=== PATIENT | female | born 1975 | race Caucasian/White ===

== ENCOUNTER → 2016-05-09 | Outpatient (CLI) | payer OTHER ==
[~2016-05-09] MED LIST: ALBUTEROL0.09 MG/A1 INH; AMITIZA8 MCG PO; BACTRIM DS 8001 TA1 PO; BUPROPION HCL150 M1 PO; BUSPIRONE30 MG PO; CIPRO250 MG PO; CLONIDINE0.2 MG PO; CYTOMEL0.005 MG PO; DEXILANT60 M1 PO; DOXEPIN HCL10 MG PO; EPIPEN 2-PAK1 MG/ML SC; GEODON20 MG PO; GEODON40 MG PO; HYDROCODONE BIT1 T11 PO; KRISTALOSE10 GM/PACK PO; LIPITOR10 MG PO; LOPRESSOR25 MG PO; MEDROL DOSEPAK4 MG PO; MELOXICAM15 MG PO; NEURONTIN400 MG PO; NORCO 5-325 TA1 EACH PO; PAXIL30 M2 PO; PAXIL40 M1 PO; PROTONIX40 MG PO; PYRIDIUM200 M1 PO; REQUIP2 M2 PO; SINGULAIR10 M1 PO; SYNTHROID RP0.1 MG PO; TESSALON PERLE100 MG PO; TOPAMAX100 M1 PO; TOPAMAX50 MG PO; ULTRAM50 MG PO; VALIUM10 MG PO; VISTARIL25 M2 PO; VITAMIN D50000 I3 PO; VOLTAREN50 M1 PO; Wellbutrin Sr100 MG PO; ZANAFLEX4 MG PO; ZIPRASIDONE HCL60 M1 PO; ZITHROMAX250 MG PO; ZOFRAN4 MG PO
== END | disposition home or self-care (01) ==
LOC: US 15:46
DX: R10.2 Pelvic and perineal pain (principal)

== ENCOUNTER 2016-06-18 21:36 | Emergency (ER) | payer OTHER ==
[~2016-06-18] VITALS: Ht 157.4 cm; Wt 100.7 kg
[2016-06-18 22:00] VITALS: BP 160/105
[2016-06-18] MEDS ORDERED: MEDROL DOSEPAK4 MG PO (22:17)
== END 2016-06-18 22:25 | disposition home or self-care (01) ==
LOC: ED 21:36
DX: L24.89 Irritant contact dermatitis due to other agents (principal); F17.200 Nicotine dependence, unspecified, uncomplicated; Z91.030 Bee allergy status; Z88.8 Allergy status to other drugs, medicaments and biological substances; Z91.041 Radiographic dye allergy status; X32.XXXA Exposure to sunlight, initial encounter; Y93.89 Activity, other specified; Y92.9 Unspecified place or not applicable; Y99.9 Unspecified external cause status

== ENCOUNTER → 2016-07-21 | Outpatient (CLI) | payer OTHER ==
[2016-07-21 12:20] LABS: BILIRUBIN NEGATIVE (NEGATIVE); BLOOD NEGATIVE (NEGATIVE); CLARITY CLEAR (CLEAR); COLOR YELLOW (YELLOW); GLUCOSE NEGATIVE (NEGATIVE); KETONE NEGATIVE (NEGATIVE); LEUKO ESTERASE NEGATIVE (NEGATIVE); NITRITE NEGATIVE (NEGATIVE); PROTEIN NEGATIVE (NEGATIVE); SPECIFIC GRAVITY <= 1.005 (1.005-1.030); UROBILINOGEN 0.2 E.U./dl (0.2-1.0)
[2016-07-21 12:51] LABS: ALBUMIN 3.9 gm/dl (3.1-4.5); BUN 12 mg/dl (7-24); CARBON DIOXIDE 27 mmol/L (21-32); CHLORIDE 104 mmol/L (98-107); CHOLESTEROL 183 mg/dL (<200); GLUCOSE 109 mg/dL (65-99); POTASSIUM 4.1 mmol/L (3.5-5.1); SODIUM 139 mmol/L (136-145)
[2016-07-21 12:59] LABS: ALKALINE PHOSPHATASE 94 U/L (45-117); BILIRUBIN, DIRECT < 0.1 mg/dL (0.0-0.2); BILIRUBIN, TOTAL 0.3 mg/dl (0.2-1.0); EST GLOM FILT AFRICAN AMERICAN > 60 ml/min; FREE T4 1.22 ng/dl (0.76-1.46); HDL CHOLESTEROL 22 mg/dl (40-60); SGOT/AST 13 IU/L (3-35); SGPT/ALT 25 U/L (12-78); TOTAL PROTEIN 7.3 gm/dL (6.4-8.2); TRIGLYCERIDES 601 mg/dl (<150)
[2016-07-21 13:00] LABS: THYROID STIM HORMONE (HS) 0.773 uIU/ml (0.358-4.75)
== END | disposition home or self-care (01) ==
LOC: LAB 11:38
PROVIDERS: Internal Medicine
DX: E03.9 Hypothyroidism, unspecified (principal); E78.5 Hyperlipidemia, unspecified; R73.02 Impaired glucose tolerance (oral); E55.9 Vitamin D deficiency, unspecified

== ENCOUNTER → 2016-09-05 | Outpatient (CLI) | payer OTHER | END | disposition home or self-care (01) | LOC: LAB 11:45 | DX: M54.5 Low back pain (principal) ==

== ENCOUNTER → 2016-09-11 | Outpatient (CLI) | payer OTHER | END | disposition home or self-care (01) | LOC: LAB 11:13 | DX: R53.83 Other fatigue (principal) ==

== ENCOUNTER → 2016-10-28 | Outpatient (CLI) | payer OTHER ==
[2016-10-28 12:01] LABS: ALBUMIN 3.9 gm/dl (3.1-4.5)
[2016-10-28 12:12] LABS: BILIRUBIN, DIRECT 0.1 mg/dL (0.0-0.2); FREE T4 1.12 ng/dl (0.76-1.46); THYROID STIM HORMONE (HS) 2.65 uIU/ml (0.358-4.75); TOTAL PROTEIN 7.7 gm/dL (6.4-8.2)
[2016-10-28 13:46] LABS: VITAMIN D, 25-HYDROXY 39.9 ng/mL (30-100)
== END | disposition home or self-care (01) ==
LOC: LAB 11:06
PROVIDERS: Internal Medicine
DX: E78.5 Hyperlipidemia, unspecified (principal); E03.9 Hypothyroidism, unspecified; E55.9 Vitamin D deficiency, unspecified; G62.9 Polyneuropathy, unspecified; R73.02 Impaired glucose tolerance (oral)

== ENCOUNTER → 2016-11-14 | Outpatient (CLI) | payer OTHER | END | disposition home or self-care (01) | LOC: MRI 10:00 | DX: M54.5 Low back pain (principal) ==

== ENCOUNTER 2016-12-16 23:06 | Emergency (ER) | payer OTHER ==
[~2016-12-16] VITALS: Ht 157.4 cm; Wt 100.7 kg
[2016-12-16 23:14] VITALS: BP 161/87
[2016-12-16] MEDS ORDERED: NAPROSYN500 MG PO (23:25)
== END 2016-12-16 23:31 | disposition home or self-care (01) ==
LOC: ED 23:06
DX: S70.01XA Contusion of right hip, initial encounter (principal); F17.200 Nicotine dependence, unspecified, uncomplicated; Z91.041 Radiographic dye allergy status; Z91.030 Bee allergy status; Z79.899 Other long term (current) drug therapy; V59.9XXA Occupant (driver) (passenger) of pick-up truck or van injured in unspecified traffic accident, initial encounter; Y93.89 Activity, other specified; Y92.89 Other specified places as the place of occurrence of the external cause; Y99.8 Other external cause status

== ENCOUNTER → 2017-02-02 | Outpatient (CLI) | payer OTHER ==
[~2017-02-02] MED LIST changes: +NAPROSYN500 MG PO
[2017-02-02 08:55] LABS: ALBUMIN 3.3 gm/dl (3.1-4.5); ALKALINE PHOSPHATASE 85 U/L (45-117); BILIRUBIN, DIRECT < 0.1 mg/dL (0.0-0.2); CHOLESTEROL 135 mg/dL (<200); HDL CHOLESTEROL 28 mg/dl (40-60); LDL CHOLESTEROL 47 mg/dL (9-159); SGOT/AST 11 IU/L (3-35); SGPT/ALT 21 U/L (12-78); TRIGLYCERIDES 301 mg/dl (<150); VLDL CHOLESTEROL 60 mg/dL (6-40)
[2017-02-02 09:02] LABS: FREE T4 0.91 ng/dl (0.76-1.46)
[2017-02-02 10:43] LABS: VITAMIN D, 25-HYDROXY 24.7 ng/mL (30-100)
== END | disposition home or self-care (01) ==
LOC: LAB 07:42
PROVIDERS: Internal Medicine
DX: G62.9 Polyneuropathy, unspecified (principal); R73.02 Impaired glucose tolerance (oral); E03.9 Hypothyroidism, unspecified; E78.5 Hyperlipidemia, unspecified; E55.9 Vitamin D deficiency, unspecified

== ENCOUNTER → 2017-04-28 | Outpatient (CLI) | payer OTHER ==
[2017-04-28 09:13] LABS: ALBUMIN 3.5 gm/dl (3.1-4.5); ALKALINE PHOSPHATASE 87 U/L (45-117); BILIRUBIN, DIRECT < 0.1 mg/dL (0.0-0.2); BUN 7 mg/dl (7-24); CHLORIDE 101 mmol/L (98-107); CHOLESTEROL 107 mg/dL (<200); CREATININE 0.73 mg/dL (0.55-1.02); FREE T4 1.27 ng/dl (0.76-1.46); HDL CHOLESTEROL 29 mg/dl (40-60); LDL CHOLESTEROL 34 mg/dL (9-159); POTASSIUM 4.2 mmol/L (3.5-5.1); SGOT/AST 8 IU/L (3-35); SGPT/ALT 18 U/L (12-78); SODIUM 137 mmol/L (136-145); TOTAL PROTEIN 7.1 gm/dL (6.4-8.2); TRIGLYCERIDES 218 mg/dl (<150); VLDL CHOLESTEROL 44 mg/dL (6-40)
[2017-04-28 09:18] LABS: THYROID STIM HORMONE (HS) 0.558 uIU/ml (0.358-4.75)
== END | disposition home or self-care (01) ==
LOC: LAB 08:19
PROVIDERS: Internal Medicine
DX: E03.9 Hypothyroidism, unspecified (principal); E78.5 Hyperlipidemia, unspecified; R73.02 Impaired glucose tolerance (oral); E55.9 Vitamin D deficiency, unspecified

== ENCOUNTER 2017-05-23 21:38 | Emergency (ER) | payer OTHER ==
[~2017-05-23] VITALS: Ht 156.2 cm; Wt 102.1 kg
[2017-05-23 21:42] VITALS: BP 147/96
[2017-05-23] MEDS ORDERED: VITAMIN D5000 UNI1 PO (21:45)
[2017-05-23] MEDS ORDERED: ATORVASTATIN CA40 M1 PO (21:46)
[2017-05-23] MEDS ORDERED: AVPAK METFORMI500 M1 PO (21:46)
[2017-05-23] MEDS ORDERED: ZALEPLON10 MG PO (21:46)
[2017-05-23] MEDS ORDERED: TOPIRAMATE50 M2 PO (21:46)
[2017-05-23] MEDS ORDERED: GABAPENTIN TAB600 MG PO (21:47)
[2017-05-23] MEDS ORDERED: PAROXETINE HCL40 MG PO (21:47)
[2017-05-23] MEDS ORDERED: ALLERGY RELIEF10 M2 PO (21:47)
[2017-05-23] MEDS ORDERED: LORAZEPAM1 MG PO (21:47)
[2017-05-23] MEDS ORDERED: CHANTIX1 M1 PO (21:48)
[2017-05-23] MEDS ORDERED: Motrin,Rufen800 MG PO (23:11)
== END 2017-05-23 23:41 | disposition home or self-care (01) ==
LOC: ED 21:38
DX: S63.682A Other sprain of left thumb, initial encounter (principal); Z91.041 Radiographic dye allergy status; Z91.030 Bee allergy status; Z88.8 Allergy status to other drugs, medicaments and biological substances; Z79.899 Other long term (current) drug therapy; Z79.84 Long term (current) use of oral hypoglycemic drugs; W22.09XA Striking against other stationary object, initial encounter; Y93.89 Activity, other specified; Y92.89 Other specified places as the place of occurrence of the external cause; Y99.8 Other external cause status

== ENCOUNTER 2017-06-28 13:08 | Emergency (ER) | payer OTHER ==
[~2017-06-28] VITALS: Ht 157.4 cm; Wt 106.6 kg
[~2017-06-28 13:08] MED LIST changes: +ALLERGY RELIEF10 M2 PO; +ATORVASTATIN CA40 M1 PO; +AVPAK METFORMI500 M1 PO; +CHANTIX1 M1 PO; +GABAPENTIN TAB600 MG PO; +LORAZEPAM1 MG PO; +Motrin,Rufen800 MG PO; +PAROXETINE HCL40 MG PO; +TOPIRAMATE50 M2 PO; +VITAMIN D5000 UNI1 PO; +ZALEPLON10 MG PO
[2017-06-28 13:23] VITALS: BP 162/99
== END 2017-06-28 13:37 | disposition home or self-care (01) ==
LOC: ED 13:08
DX: H57.8 Other specified disorders of eye and adnexa (principal); Z98.51 Tubal ligation status; Z79.899 Other long term (current) drug therapy; Z91.030 Bee allergy status; Z91.041 Radiographic dye allergy status

== ENCOUNTER 2017-07-05 09:35 | Emergency (ER) | payer OTHER ==
[~2017-07-05] VITALS: Wt 113.4 kg
[2017-07-05 09:39] VITALS: BP 158/80
[2017-07-05] MEDS ORDERED: ATARAX,VISTARIL10 MG PO (11:23)
[2017-07-05] MEDS ORDERED: LIDEX 0.05% CRE15 GM T (11:23)
== END 2017-07-05 11:38 | disposition home or self-care (01) ==
LOC: ED 09:35
DX: M79.645 Pain in left finger(s) (principal); S90.862A Insect bite (nonvenomous), left foot, initial encounter; S90.861A Insect bite (nonvenomous), right foot, initial encounter; S90.562A Insect bite (nonvenomous), left ankle, initial encounter; S90.561A Insect bite (nonvenomous), right ankle, initial encounter; Z91.041 Radiographic dye allergy status; Z79.899 Other long term (current) drug therapy; Z88.8 Allergy status to other drugs, medicaments and biological substances; Z79.84 Long term (current) use of oral hypoglycemic drugs; W57.XXXA Bitten or stung by nonvenomous insect and other nonvenomous arthropods, initial encounter; Y93.89 Activity, other specified; Y92.89 Other specified places as the place of occurrence of the external cause; Y99.8 Other external cause status

== ENCOUNTER 2017-08-26 20:13 | Emergency (ER) | payer OTHER ==
[~2017-08-26] VITALS: Wt 105.7 kg
--- NOTE | ~2017-08-26 | EKG ---
[place], [place] ELECTROCARDIOGRAM REPORT NAME: ELIECER CARRASCO I UNIT #: [id number] ROOM: DOCTOR: RYLAND DRAFT REPORT BIRTHDATE: [birth year] [facility] Test Date: 2017-08-26 Test Time: 20:58:34 Pat Name: ELIECER CARRASCO Department: Room: Gender: F Development Executive: Lizett Medley : 1975 Requested By: JENNY VELEZ PA-C Order Number: [id number] Reading MD: Jeff Sotelo MD Measurements Intervals [place] Rate: 77 P: 34 UT: 174 QRS: 50 QRSD: 80 T: 37 QT: 367 QTc: 416 Interpretive Statements Sinus rhythm Normal EKG. Electronically Signed On 08-27-2017 16:10:54 PDT by Jeff Sotelo MD CM:EKGRPT:ELECTROCARDIOGRAM REPORT 57 [id number] JENNY MARCELINO DRAFT REPORT
--- NOTE | ~2017-08-26 | EKG ---
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
[~2017-08-26 20:13] MED LIST changes: +ATARAX,VISTARIL10 MG PO; +LIDEX 0.05% CRE15 GM T
[2017-08-26 20:18] VITALS: BP 137/84
[2017-08-26 20:47] LABS: BASO # 0.1 10*3/uL (0.0-0.1); BASO % 0.6 % (0.0-1.0); EOS # 0.3 10*3/uL (0.0-0.4); EOS % 2.6 % (1.0-4.0); HEMATOCRIT 40.5 % (37.0-47.0); LYMPH # 3.2 10*3/uL (1.3-4.4); MEAN CELL VOLUME 95.5 fl (81.0-99.0); MEAN CORPUSCULAR HGB 30.7 pg (27.0-31.0); MEAN CORPUSCULAR HGB CONC 32.1 g/dl (33.0-37.0); MEAN PLATELET VOLUME 10.5 fl (9.6-12.3); MONO # 0.7 10*3/uL (0.1-1.0); MONO % 7.2 % (3.0-9.0); NEUT # 5.2 10*3/uL (2.3-7.9); NEUT % 55.3 % (47.0-73.0); PLATELET COUNT AUTOMATED 306 10*3/uL (130-400); RED BLOOD COUNT 4.24 10*6/uL (4.10-5.10); RED CELL DISTRI WIDTH 13.7 % (0-14.5); WHITE BLOOD COUNT 9.5 10*3/uL (4.8-10.8)
[2017-08-26 21:05] LABS: ALBUMIN 3.6 gm/dl (3.1-4.5); ALKALINE PHOSPHATASE 84 U/L (45-117); BUN 7 mg/dl (7-24); CHLORIDE 102 mmol/L (98-107); CREATININE 0.85 mg/dL (0.55-1.02); SGOT/AST 14 IU/L (3-35); SGPT/ALT 24 U/L (12-78); SODIUM 139 mmol/L (136-145); TOTAL PROTEIN 6.9 gm/dL (6.4-8.2); TROPONIN I < 0.015 ng/ml (<0.045)
[2017-08-26] MEDS ORDERED: LIDEX 0.05% CRE15 GM T (22:22)
[2017-08-26] MEDS ORDERED: PREDNISONE20 M1 PO (22:22)
== END 2017-08-26 23:34 | disposition home or self-care (01) ==
LOC: ED 20:13
PROVIDERS: Physician Assistant
DX: L55.0 Sunburn of first degree (principal); E11.9 Type 2 diabetes mellitus without complications; F17.200 Nicotine dependence, unspecified, uncomplicated; Z98.51 Tubal ligation status; Z79.899 Other long term (current) drug therapy; Z91.030 Bee allergy status; Z91.041 Radiographic dye allergy status; Z88.8 Allergy status to other drugs, medicaments and biological substances

== ENCOUNTER 2017-09-10 11:02 | Emergency (ER) | payer OTHER ==
[~2017-09-10] VITALS: Ht 157.4 cm; Wt 101.2 kg
[2017-09-10 11:02] VITALS: BP 136/75
[~2017-09-10 11:02] MED LIST changes: +PREDNISONE20 M1 PO
[2017-09-10 11:21] LABS: BILIRUBIN NEGATIVE (NEGATIVE); BLOOD 3+ (NEGATIVE); CLARITY SL CLOUDY (CLEAR); COLOR YELLOW (YELLOW); GLUCOSE NEGATIVE (NEGATIVE); KETONE NEGATIVE (NEGATIVE); LEUKO ESTERASE 1+ (NEGATIVE); NITRITE NEGATIVE (NEGATIVE); SPECIFIC GRAVITY <= 1.005 (1.005-1.030); UROBILINOGEN 0.2 E.U./dl (0.2-1.0)
[2017-09-10 11:30] LABS: BACTERIA 1+; RBC 51-100 rbc/hpf (0-2)
[2017-09-10 11:59] LABS: BASO # 0.1 10*3/uL (0.0-0.1); BASO % 0.6 % (0.0-1.0); EOS # 0.3 10*3/uL (0.0-0.4); EOS % 3.7 % (1.0-4.0); HEMATOCRIT 42.7 % (37.0-47.0); HEMOGLOBIN 13.9 g/dl (12.0-16.0); LYMPH # 2.6 10*3/uL (1.3-4.4); MEAN CELL VOLUME 93.8 fl (81.0-99.0); MEAN CORPUSCULAR HGB 30.5 pg (27.0-31.0); MEAN CORPUSCULAR HGB CONC 32.6 g/dl (33.0-37.0); MEAN PLATELET VOLUME 10.6 fl (9.6-12.3); MONO # 0.5 10*3/uL (0.1-1.0); MONO % 6.5 % (3.0-9.0); NEUT # 4.4 10*3/uL (2.3-7.9); NEUT % 55.9 % (47.0-73.0); PLATELET COUNT AUTOMATED 298 10*3/uL (130-400); RED BLOOD COUNT 4.55 10*6/uL (4.10-5.10); RED CELL DISTRI WIDTH 13.3 % (0-14.5); WHITE BLOOD COUNT 7.8 10*3/uL (4.8-10.8)
[2017-09-10 12:15] LABS: ALKALINE PHOSPHATASE 90 U/L (45-117); BUN 9 mg/dl (7-24); CHLORIDE 103 mmol/L (98-107); CREATININE 0.86 mg/dL (0.55-1.02); POTASSIUM 3.9 mmol/L (3.5-5.1); SGOT/AST 6 IU/L (3-35); SGPT/ALT 22 U/L (12-78); SODIUM 139 mmol/L (136-145); TOTAL PROTEIN 7.4 gm/dL (6.4-8.2)
[2017-09-10] MEDS ORDERED: MACROBID100 M1 PO (12:35)
== END 2017-09-10 12:46 | disposition home or self-care (01) ==
LOC: ED 11:02
PROVIDERS: Nurse Practitioner Family
DX: N39.0 Urinary tract infection, site not specified (principal); R42 Dizziness and giddiness; R51 Headache; N93.9 Abnormal uterine and vaginal bleeding, unspecified; Z91.030 Bee allergy status; Z91.041 Radiographic dye allergy status; Z88.8 Allergy status to other drugs, medicaments and biological substances; Z79.899 Other long term (current) drug therapy

== ENCOUNTER → 2017-09-18 | Outpatient (CLI) | payer OTHER ==
[~2017-09-18] MED LIST changes: +MACROBID100 M1 PO
[2017-09-18 09:11] LABS: BASO # 0.1 10*3/uL (0.0-0.1); BASO % 0.9 % (0.0-1.0); EOS # 0.3 10*3/uL (0.0-0.4); EOS % 3.6 % (1.0-4.0); HEMATOCRIT 44.7 % (37.0-47.0); HEMOGLOBIN 14.5 g/dl (12.0-16.0); LYMPH # 3.5 10*3/uL (1.3-4.4); LYMPH % 38.8 % (27.0-41.0); MEAN CELL VOLUME 94.1 fl (81.0-99.0); MEAN CORPUSCULAR HGB 30.5 pg (27.0-31.0); MEAN CORPUSCULAR HGB CONC 32.4 g/dl (33.0-37.0); MEAN PLATELET VOLUME 10.3 fl (9.6-12.3); MONO # 0.7 10*3/uL (0.1-1.0); MONO % 7.5 % (3.0-9.0); NEUT # 4.4 10*3/uL (2.3-7.9); NEUT % 48.9 % (47.0-73.0); PLATELET COUNT AUTOMATED 306 10*3/uL (130-400); RED BLOOD COUNT 4.75 10*6/uL (4.10-5.10); RED CELL DISTRI WIDTH 13.2 % (0-14.5); WHITE BLOOD COUNT 8.9 10*3/uL (4.8-10.8)
[2017-09-18 09:49] LABS: ALBUMIN 3.7 gm/dl (3.1-4.5); BUN 9 mg/dl (7-24); CHLORIDE 104 mmol/L (98-107); SODIUM 137 mmol/L (136-145)
[2017-09-18 09:53] LABS: ALKALINE PHOSPHATASE 82 U/L (45-117); BILIRUBIN, DIRECT 0.1 mg/dL (0.0-0.2); CHOLESTEROL 164 mg/dL (<200); CREATININE 0.71 mg/dL (0.55-1.02); HDL CHOLESTEROL 20 mg/dl (40-60); LDL CHOLESTEROL 74 mg/dL (9-159); SGOT/AST 7 IU/L (3-35); SGPT/ALT 23 U/L (12-78); TOTAL PROTEIN 7.2 gm/dL (6.4-8.2); TRIGLYCERIDES 350 mg/dl (<150); VLDL CHOLESTEROL 70 mg/dL (6-40)
[2017-09-18 09:59] LABS: FREE T4 0.94 ng/dl (0.76-1.46); THYROID STIM HORMONE (HS) 4.18 uIU/ml (0.358-4.75)
[2017-09-18 10:19] LABS: VITAMIN D, 25-HYDROXY 32.9 ng/mL (30-100)
== END | disposition home or self-care (01) ==
LOC: LAB 08:20
PROVIDERS: Internal Medicine; Preventive Medicine Occupational Medicine
DX: E78.5 Hyperlipidemia, unspecified (principal); E03.9 Hypothyroidism, unspecified; E55.9 Vitamin D deficiency, unspecified; R73.02 Impaired glucose tolerance (oral); R53.82 Chronic fatigue, unspecified

== ENCOUNTER 2017-11-13 10:55 | Emergency (ER) | payer OTHER ==
[~2017-11-13] VITALS: Wt 102.5 kg
[2017-11-13 10:55] VITALS: BP 129/80
[2017-11-13] MEDS ORDERED: FLONASE ALLERG9.9 ML NAS (11:04)
[2017-11-13] MEDS ORDERED: PROAIR HFA8.5 GM INH (11:04)
[2017-11-13] MEDS ORDERED: PREDNISONE10 MG PO (11:04)
[2017-11-13] MEDS ORDERED: ROBITUSSIN DM 105 ML PO (11:04)
== END 2017-11-13 12:51 | disposition home or self-care (01) ==
LOC: ED 10:55
DX: J20.9 Acute bronchitis, unspecified (principal); R03.0 Elevated blood-pressure reading, without diagnosis of hypertension; E11.9 Type 2 diabetes mellitus without complications; F17.200 Nicotine dependence, unspecified, uncomplicated; Z98.51 Tubal ligation status; Z79.899 Other long term (current) drug therapy; Z91.030 Bee allergy status; Z91.041 Radiographic dye allergy status; Z88.8 Allergy status to other drugs, medicaments and biological substances

== ENCOUNTER 2021-05-30 18:46 | Emergency (ER) | payer OTHER ==
[~2021-05-30] VITALS: Wt 90.7 kg
[~2021-05-30 18:46] MED LIST changes: +FLONASE ALLERG9.9 ML NAS; +PREDNISONE10 MG PO; +PROAIR HFA8.5 GM INH; +ROBITUSSIN DM 105 ML PO
[2021-05-30 18:58] VITALS: BP 155/92
[2021-05-30] MEDS ORDERED: NAPROXEN250 MG PO (19:48)
== END 2021-05-30 19:56 | disposition home or self-care (01) ==
LOC: ED 18:46
DX: M25.531 Pain in right wrist (principal); M79.641 Pain in right hand; Z98.51 Tubal ligation status; Z79.899 Other long term (current) drug therapy; Z91.030 Bee allergy status; Z91.041 Radiographic dye allergy status; V89.2XXA Person injured in unspecified motor-vehicle accident, traffic, initial encounter; Y93.89 Activity, other specified; Y92.413 State road as the place of occurrence of the external cause; Y99.9 Unspecified external cause status

== ENCOUNTER 2022-07-08 21:53 | Emergency (ER) | payer OTHER ==
[~2022-07-08] VITALS: Ht 154.9 cm; Wt 88.5 kg
[~2022-07-08 21:53] MED LIST changes: +NAPROXEN250 MG PO
[2022-07-08 22:20] VITALS: BP 165/75
== END 2022-07-08 23:51 | disposition home or self-care (01) ==
LOC: ED 21:53
DX: S90.32XA Contusion of left foot, initial encounter (principal); E03.9 Hypothyroidism, unspecified; E11.9 Type 2 diabetes mellitus without complications; Z91.030 Bee allergy status; Z91.041 Radiographic dye allergy status; Z88.8 Allergy status to other drugs, medicaments and biological substances; Z79.899 Other long term (current) drug therapy; Z98.51 Tubal ligation status; W20.8XXA Other cause of strike by thrown, projected or falling object, initial encounter; Y93.89 Activity, other specified; Y92.89 Other specified places as the place of occurrence of the external cause; Y99.8 Other external cause status